=== PATIENT | female | born 2000 | race Caucasian/White ===

== ENCOUNTER → 2024-04-25 | Day surgery (SDC) | payer BC ==
[2024-04-23 10:00] LABS: BASOPHILS % (AUTO) 0.5 % (0-1); EOSINOPHILS % (AUTO) 0.5 % (0-6); LYMPHOCYTES % (AUTO) 42.8 % (21-51); MEAN CORPUSCULAR HEMOGLOBIN 29.9 PG (27.0-31.0); MEAN CORPUSCULAR HGB CONC 34.3 g/dL (33.0-36.5); MEAN CORPUSCULAR VOLUME 87.4 FL (78-98); MEAN PLATELET VOLUME 7.9 FL (7.4-10.4); MONOCYTES # (AUTO) 0.3 X10'3 (0-0.9); MONOCYTES % (AUTO) 6.7 % (2-12); NEUTROPHILS # (AUTO) 2.3 X10'3 (1.8-7.7); NEUTROPHILS % (AUTO) 49.5 % (42-75); PRE OP HEMATOCRIT 40.1 % (35.0-45.0); PRE OP HEMOGLOBIN 13.7 g/dL (12.0-16.0); PRE OP PLATELET COUNT 270 X10'3 (140-440); PRE OP WHITE BLOOD COUNT 4.7 10'3 (4.8-10.8); RED BLOOD COUNT 4.59 X10'6 (4.20-5.60); RED CELL DISTRIBUTION WIDTH 12.9 % (11.5-14.5)
[2024-04-23 10:35] LABS: HCG SERUM QL NEGATIVE
[2024-04-23 11:12] LABS: ALBUMIN 4.8 G/DL (3.4-5.0); ALBUMIN/GLOBULIN RATIO 1.2 (1.1-1.5); ALKALINE PHOSPHATASE 73 IU/L (46-116); BLOOD UREA NITROGEN 8 MG/DL (7-18); BUN/CREATININE RATIO 10.1 (10.0-20.0); CALCIUM 10.1 MG/DL (8.5-10.1); CHLORIDE 106 MMOL/L (99-107); CREATININE 0.79 MG/DL (0.40-0.90); PRE OP ALT 16 U/L (30-65); PRE OP ANION GAP 11 (8-16); PRE OP AST 15 U/L (10-37); PRE OP BILIRUB, TOTAL 0.6 MG/DL (0.0-1.0); PRE OP GLUCOSE 103 MG/DL (70-104); PRE OP POTASSIUM 3.6 MMOL/L (3.4-5.1); PRE OP SODIUM 141 MMOL/L (135-145); TOTAL CARBON DIOXIDE 23.7 MMOL/L (24-32); TOTAL PROTEIN 8.8 G/DL (6.4-8.2); eGFR > 90 ML/MIN
[~2024-04-25] VITALS: Ht 165.1 cm; Wt 98.1 kg
[2024-04-25] VITALS (14 sets, daily range): BP systolic 86–134; BP diastolic 45–86; PULSE 68–110; RESP 11–16; TEMP 98.1; O2SAT 98–100
[~2024-04-25] MED LIST: BUPIVAcaine 2.5mg/ml inj 50ml vial (contains preservative) ONE; BUPIVAcaine HCl 0.25%/EPInephrine 1:200,000 inj. 10 ML VIAL ONE; LIDOcaine 1% (10mg/ml)w/preservative inj. 20ml MDV ONE; LIDOcaine 2% (20mg/ml) 5ml vial ONE; NO HOME MEDS; ROPIVAcaine 0.5% (5mg/ml) 30ml vial ONE; enalaprilat dihydrate 2.5mg/2ml vial IV PRN; fentaNYL/PF 50MCG/1 ML 2ML syringe ONE; labetalol 20mg/4ml (5mg/ml) syringe IV PRN; meperidine/PF 25mg/ml syringe IV PRN; midazolam 1 mg/ML 2ml injection ONE; morphine 2 MG/ML inj. syringe IV PRN; morphine 4 MG/ML inj SYRINge IV PRN; ondansetron/PF 4mg/2ml inj ONE; proCHLORperazine 10 MG/2 ml inj IV PRN; propofol inj 20 ML IV ONE; ringers solution, lacted 1,000 ML IV SCH; sevoflurane 250ml liquid IH ONE
[2024-04-25] MEDS: ringers solution, lacted 1,000 ML IV SCH (06:02)
[2024-04-25] MEDS: famotidine 20mg tablet PO ONE (06:02)
[2024-04-25] MEDS: VANCOMYCIN 1GM 200ML H20 (PEG) 200 ML IV ONE (06:02)
[2024-04-25] MEDS: BUPIVAcaine 2.5mg/ml inj 50ml vial (contains preservative) SQ ONE (08:31)
[2024-04-25] MEDS: meperidine/PF 25mg/ml syringe IV PRN (09:32)
[2024-04-25] MEDS: ondansetron/PF 4mg/2ml inj IV PRN (10:11)
== END | disposition home or self-care (01) ==
LOC: PAS 05:33 → EDBD 12:45
PROVIDERS: ATTEND Surgery
DX: R92.8 Other abnormal and inconclusive findings on diagnostic imaging of breast (principal); D24.1 Benign neoplasm of right breast; Z79.899 Other long term (current) drug therapy; F12.90 Cannabis use, unspecified, uncomplicated; Z98.890 Other specified postprocedural states
CPT/HCPCS: 19301; 36415; 64999; 80053; 82948; 84703; 85025; J1100; J2003; J2175; J2250; J2405; J2704; J2795; J3010; J3372; J3490; J7030; J7120; Z7506; Z7508; Z7512; A4215; A4618; A6449; A7000